=== PATIENT | male | born 1980 | race Caucasian/White ===

== ENCOUNTER 2021-01-05 07:59 | Day surgery (SDC) | payer OTHER ==
[2021-01-05] VITALS (10 sets, daily range): BP systolic 107–150; BP diastolic 76–92
[~2021-01-05] VITALS: Ht 185.4 cm; Wt 97.7 kg
--- NOTE | 2021-01-05 08:30 | NUR ---
DR. ADDISON IN TO SEE PATIENT.
--- NOTE | 2021-01-05 08:45 | NUR ---
PATIENT ESCORTED TO ROOM BY KURTIS AMBRIZ NURSE AT THIS TIME. ROOM SAFETY GONE OVER BY NURSE. SAFETY COMPLIANCE SPECIALIST DONE AT THIS TIME SEE INTERVENTIONS. PATIENT ALERT AND ORINETED ROOM SAFETY EXPLAINED TO PATIENT AT THIS TIME. SIDERAILS ARE UP CALL LIGHT WITHIN REACH. ANR NURSE BALDO WITH PATIENT.
--- NOTE | 2021-01-05 09:00 | NUR ---
DR. DASILVA IN TO SEE PATIENT
--- NOTE | 2021-01-05 11:57 | NUR ---
PATIENT RESTING IN BED AT THIS TIME. PATIENT DENEIS ANY NEEDS WAITING TO GO TO ANR PROCEEDURE AT THIS TIME. SIDERAIL ARE UP CALL LIGHT WITHIN REACH.
--- NOTE | 2021-01-05 14:52 | NUR ---
PATIENT REMAINS DOWN IN ANR PROCEEDURE.
--- NOTE | 2021-01-05 16:00 | NUR ---
PATIENT REMAINS IN ANR PROCEEDURE OFF FLOOR.
[2021-01-05 16:29] LABS: ALBUMIN 4.7 g/dL (3.2-5.0); ALKALINE PHOSPHATASE 94 u/l (38-126); ANION GAP 10 (6-22 (CALC)); BILIRUBIN, TOTAL 0.7 mg/dL (0.0-1.4); BUN 15 mg/dL (9-20); BUN/CREATININE RATIO 16 (12-20 (CALC)); CARBON DIOXIDE 24 mmol/l (22-30); CHLORIDE 105 mmol/l (95-108); CREATININE 0.9 mg/dL (0.7-1.3); GFR > 60 ML/MIN (>=60 (CALC)); GFR FOR AFR.AMER. > 60 ML/MIN (>=60 (CALC)); POTASSIUM 4.2 mmol/l (3.5-5.1); SGOT/AST 83 u/l (17-59); SODIUM 136 mmol/l (137-146); TOTAL PROTEIN 8.8 g/dL (6.3-8.2)
[2021-01-05 16:34] LABS: HEMATOCRIT 43.4 % (39.0-50.0); HEMOGLOBIN 14.4 g/dl (14.0-18.0); IMMATURE GRANULOCYTES 0.3 % (0.0-5.0); MEAN CELL VOLUME 93.1 fL CALC (80.0-100.0); MEAN CORPUSCULAR HGB 30.9 pG CALC (26.0-32.0); MEAN CORPUSCULAR HGB CONC 33.2 g/dL CAL (32.0-36.0); NEUT# 4.64 thou/uL (1.82-7.42); RED BLOOD COUNT 4.66 mill/uL (4.70-6.10); RED CELL DISTRI WIDTH 13.1 % (11.5-15.5)
[2021-01-06 06:45] LABS: ALBUMIN 4.2 g/dL (3.2-5.0); ALKALINE PHOSPHATASE 78 u/l (38-126); ANION GAP 15 (6-22 (CALC)); BILIRUBIN, TOTAL 0.7 mg/dL (0.0-1.4); BUN 12 mg/dL (9-20); BUN/CREATININE RATIO 14 (12-20 (CALC)); CARBON DIOXIDE 20 mmol/l (22-30); CHLORIDE 105 mmol/l (95-108); CREATININE 0.9 mg/dL (0.7-1.3); GFR > 60 ML/MIN (>=60 (CALC)); GFR FOR AFR.AMER. > 60 ML/MIN (>=60 (CALC)); SGOT/AST 33 u/l (17-59); SODIUM 135 mmol/l (137-146); TOTAL PROTEIN 7.7 g/dL (6.3-8.2)
--- NOTE | 2021-01-06 06:46 | NUR ---
PATIENT LAYING IN BED AT THIS TIME ALERT AND ORIENTED AT THIS TIME. SIDERAILS ARE UP CALL LIGHT WITHIN REACH LENS GRINDING MACHINE OPERATOR DONE SEE INTERVENTIONS
[2021-01-06 07:37] VITALS: BP 161/82
--- NOTE | 2021-01-06 11:49 | NUR ---
PATIENT LAYING IN BED MOANING AT THIS TIME. WHEN ASKED IF PATIENT HAS PAIN PATIENT STATES NO "I JUST FEEL SICK" NO VOMITTING NOTED AT THIS TIME SIDERAILS UP CALL LIGHT WITHIN REACH ENCOURAGED PATIENT TO EAT LUNCH.
[2021-01-06 12:19] VITALS: BP 141/83
--- NOTE | 2021-01-06 12:27 | NUR ---
THIS NURSE REACH OUT TO DR. LINDQUIST AT THIS TIME DUE TO ABNORMAL VITAL SIGNS. LEFT MESSAGE TO CALL WENT TO TRAUMA ROOM TO SPEAK TO ANR NURSES AT THIS TIMEREGARDING HOW TO GET A HOLD OF DR. MCINTYRE, KURTIS ANR NURSE STATED DR. MCINTYRE IS OFF SITE SEEING A PATIENT AT THIS TIME AND THAT HE WILL TRY AND REACH HIM.
--- NOTE | 2021-01-06 13:05 | NUR ---
DR. MCINTYRE CALLED BACK AND ORDERS OBTAINED.
--- NOTE | 2021-01-06 14:01 | NUR ---
3 PRESCRIPTION SCRIPTS PULLED BY ESTEFANY AND GIVEN TO DR MCINTYRE PER VERBAL ORDERS FOR D/C MEDICATIONS
--- NOTE | 2021-01-06 16:15 | NUR ---
PATIENT REMAINS IN BED AT THIS TIME PATIENT REMAINS UNCOOPERATIVE ABOUT GETTING UP. PATIENT IS ALERT AND ORIENTED AND CONTINUES TO ASK FOR "HEMA'S" DR. MCINTYRE IN TO SEE PATIENT AT THIS TIME. SIDERAILS ARE UP CALL LIGHT WITHIN REACH.
[2021-01-06 21:04] VITALS: BP 150/84
--- NOTE | 2021-01-07 07:15 | NUR ---
REPORT RECEIVED FROM [facility]
[2021-01-07 08:04] VITALS: BP 137/95
--- NOTE | 2021-01-07 08:50 | NUR ---
PT RESTING IN SEMI FOWLERS POSITION,A&O X3;VS OBTAINED AND ASSESSMENT COMPLETED;PT DENIES ANY CURRENT PAIN OR DISCOMFORTS,PAIN SCALE AND REPORTING EDUCATED;RESPIRATIONS EVEN AND UNLABORED ON RA,CLEAR LUNG SOUNDS;ABDOMEN SOFT ON PALPATION AND ACTIVE IN ALL 4 QUADRANTS;STRONG PEDAL PULSES;SKIN INTACT;#18G TO LH INFUSING NS @ 150ML/HR,SITE APPEARS HEALTHY;PT DENIES ANY ADDITIONAL NEEDS AND IS ENCOURAGED TO CALL FOR ASSISTANCE IF NEEDED;FALL PRECAUTIONS IN PLACE WITH BED IN THE LOWEST POSITION AND CALL LIGHT IN REACH;WILL CONTINUE TO MONITOR
--- NOTE | 2021-01-07 10:42 | NUR ---
ALL DISCHARGE INSTRUCTIONS PROVIDED BY [facility]; X3 SCRIPTS PROVIDED AND IV SITE REMOVED WITH CATHETER INTACT;WC TO BE PROVIDED FOR D/C HOME;FAMILY TO TRANSPORT PT HOME;WILL CONTINUE TO MONITOR
--- NOTE | 2021-01-07 11:03 | NUR ---
Discharge instructions given. Patient verbalizes understanding of same. Discharged in stable condition via Wheelchair to Home with family. All belongings sent with pt. PT TRANSPORTED TO [facility] IN STABLE CONDITION VIA ACCOMPANIED BY [facility]. ALL BELONGINGS LEFT WITH PT INCLUDING X3 SCRIPTS.FAMILY TO TRANSPORT PT HOME.
== END 2021-01-07 11:03 | disposition home or self-care (01) | DRG 897 ==
LOC: ANR 07:59 → MS2 08:03 → ANR 10:46
PROVIDERS: Nurse Practitioner; ATTEND Anesthesiology
DX: F11.20 Opioid dependence, uncomplicated (principal)
CPT/HCPCS: J2060; J2354